=== PATIENT | male | born 1940 | race Caucasian/White ===

== ENCOUNTER → 2019-03-15 | Outpatient (CLI) | payer OTHER ==
--- NOTE | 2019-03-15 16:04 | CARDNUC ---
[place] [address] CARDIAC NUCLEAR IMAGING REPORT Name: PK DANIELLE Room: [facility]#: [id number] Admission: Attend Phys: Connie Villalta Discharge: Date of : 44 Date of Service: 03/15/19 1603 Report #: [id number] THIS REPORT FOR: //name// APPROVED REPORT Study performed: 03/15/2019 11:37:10 Exam: Nuclear Stress Test Indication: Dyspnea Patient Location: Out-Patient Stress Tech: Mayuri Simeon Stress Nurse: Radha Beltran R.N. Ht: 5 ft 3 in Wt: 185 lbs BSA: 1.87 m2 BMI: 32.76 Medical History Medical History: Diabetes, HTN, Hyperlipidemia, Obesity , SOB, Stroke/TIA, Chews Tobacco. Medications: Bystolic, Lisinopril, Metformin, Doxazosin. Allergies: No known drug allergies Cardiac Risk Factors: Age, DM, FHX of CAD, HTN, Hyperlipidemia, SOB. Previous Cardiac Procedures: None Pretest Chest Pain Characteristics: No chest pain Exercise History: Indeterminate Physical Disabilities: SOA, Obesity, unsteady gait. Meds Held (24 hrs): None Stress Test Details Stress Test: Pharmacologic stress testing performed using 0.4 mg of regadenoson per 5 mL given IV over 10 seconds. Reason for pharmacologic stress test: Unsteady gait, SOA.. HR Resting HR: 63 bpm Max Heart Rate (APMHR): 144 bpm Max HR Achieved: 90 bpm Target HR (85% APMHR): 122 bpm % of APMHR: 62 Recovery HR: 79 bpm HR response to stress: Normal HR response to stress BP Resting BP: 199/91 mmHg Max BP: 161/74 [place] [address] CARDIAC NUCLEAR IMAGING REPORT Name: PK DANIELLE Room: [facility]#: [id number] Admission: Attend Phys: Connie Villalta Discharge: Date of : 44 Date of Service: 03/15/19 1603 Report #: [id number] BP response to stress: Normal blood pressure response to stress. ECG Resting ECG: nsr Stress ECG: nsr ST Change: none Arrhythmia: none Recovery ECG: nsr Recovery ST Change: none Clinical Reason for Termination: Completed protocol Stress Symptoms: Brief SOA. Exercise duration: 00 min 00 sec Exercise capacity: 1.00 METs Nurse Comments 78 year old male presented with recent HX of increased SOA on exertion and HTN. Patient tolerated sitting Lexiscan well. Recovery unremarkable with PO caffeine, effective. Patient continued with HTN as when patient arrived. Instructed patient to take B/P medication back at home and talk to PCP about continued HTN. Patient escorted by staff to Nuclear Medicine for images. Patient was stable with no complaints at that time. NM EXAM: Myocardial Perfusion REST/STRESS Resting Data Rest SPECT myocardial perfusion imaging was performed in supine position 30 minutes following the intravenous injection of 11.0 mCi of Tc-99m Sestamibi. Time of rest injection: 10:05 The images were gated to evaluate regional wall motion and calculate left ventricular ejection fraction. Administration Route: IV Administration Site: Right AC Pharmacologic Stress Pharmacologic stress test was performed by injecting Regadenoson 0.4 mg IV push followed by the intravenous injection of 32.5 mCi of Tc-99m Sestamibi. Time of stress injection: 11:45 Administration Route: IV Administration Site: Right AC Heart Rate at time of stress injection: 89 bpm. Gated Stress SPECT was performed 45 [place] [address] CARDIAC NUCLEAR IMAGING REPORT Name: PK DANIELLE Room: [facility]#: [id number] Admission: Attend Phys: Connie Villalta Discharge: Date of : 44 Date of Service: 03/15/19 1603 Report #: [id number] injection. The images were gated to evaluate regional wall motion and calculate left ventricular ejection fraction. Study Quality Study: Good Artifact: No artifact Study Data At rest, the left ventricular ejection fraction was 63%.. Post stress, the left ventricular ejection was 79%.. SSS: 0 SRS: 0 SDS: 0 Perfusion Review of rest data reveals normal perfusion, without perfusion defects.Imaging obtained following vasodilator stress demonstrate a similar, uniform uptake of tracer without defects. LVEDV is normal.No segental wall motion abnormality seen. Nuclear Conclusion ECG Findings: negative for ischemia Clinical Findings: negative for ischemia Nuclear Findings: negative for ischemia Exercise Capacity: not assessed Left Ventricular Function: normal Risk Study: low Negative nuclear perfuson stress test for ischemia or infarct <ELECTRONICALLY SIGNED> By: Vinny Guadalupe MD, FACC 03/15/19 1603 1603 1603 Vinny Guadalupe MD, FACC /INF
== END ==
LOC: M.NUC 03-06 11:42 → M.CRD 09:00 → M.NUC 10:00
DX: R06.09 Other forms of dyspnea (principal); E11.9 Type 2 diabetes mellitus without complications; I10 Essential (primary) hypertension; E78.5 Hyperlipidemia, unspecified; E66.9 Obesity, unspecified; F17.200 Nicotine dependence, unspecified, uncomplicated; Z79.84 Long term (current) use of oral hypoglycemic drugs; Z79.899 Other long term (current) drug therapy

== ENCOUNTER 2019-10-25 16:38 | Emergency (ER) | payer OTHER ==
[~2019-10-25] VITALS: Ht 160 cm; Wt 79.4 kg
[2019-10-25] MEDS ORDERED: METFORMIN HCL500 M3 PO (17:07)
[2019-10-25] MEDS ORDERED: BYSTOLIC10 MG PO (17:07)
[2019-10-25] MEDS ORDERED: LISINOPRIL-HCT1 EAC2 PO (17:07)
[2019-10-25] MEDS ORDERED: OMEPRAZOLE 20 M20 M1 PO (17:08)
[2019-10-25] MEDS ORDERED: DOXAZOSIN MESYLA4 MG PO (17:09)
[2019-10-25 17:41] LABS: CALCIUM 8.9 mg/dL (8.5-10.1); CREATININE 1.1 mg/dL (0.6-1.3); POTASSIUM 3.9 mmol/L (3.5-5.1)
[2019-10-25 17:45] LABS: ALBUMIN 3.4 g/dL (3.4-5.0); TOTAL BILIRUBIN 0.2 mg/dL (<0.1-1.0); TOTAL PROTEIN 7.1 g/dL (6.4-8.2)
[2019-10-25 18:14] LABS: URINE BILIRUBIN NEGATIVE (Negative); URINE BLOOD NEGATIVE (Negative); URINE CLARITY CLEAR; URINE COLOR YELLOW; URINE GLUCOSE-RANDOM NEGATIVE (Negative); URINE KETONES NEGATIVE (Negative); URINE LEUKOCYTES-REFLEX NEGATIVE (Negative); URINE NITRITE-REFLEX NEGATIVE (Negative); URINE PROTEIN NEGATIVE (Negative); URINE UROBILINOGEN 0.2 E.U./dl (0.2-1.0)
[2019-10-25 18:17] LABS: ABSOLUTE BASOPHILS 0.1 thou/uL (0.0-0.2); ABSOLUTE EOSINOPHILS 0.1 thou/uL (0.0-0.7); ABSOLUTE LYMPHOCYTES 1.6 thou/uL (0.8-5.3); ABSOLUTE MONOCYTES 0.5 thou/uL (0.0-1.2); ABSOLUTE NEUTROPHILS 5.9 thou/uL (1.6-8.1); BASOPHILS 0.6 %; EOSINOPHILS 1.1 %; HEMATOCRIT 34.3 % (42.0-52.0); HEMOGLOBIN 11.9 gm/dL (14.0-18.0); LYMPHOCYTES 19.3 %; MCH 29.2 pg (26.0-34.0); MCHC 34.7 g/dL (28.0-37.0); MCV 84.1 fL (80.0-100.0); MONOCYTES 6.7 %; NUCLEATED RBCS 0 /100WBC; PLATELET COUNT* 245 thou/uL (150-400); POLYS 72.3 %; RBC 4.07 mil/uL (4.50-6.00); RDW-CV 13.9 % (10.5-14.5); WBC 8.2 thou/uL (4.0-11.0)
[2019-10-25] MEDS ORDERED: CATAPRES0.1 MG PO (19:30)
[2019-10-25 19:55] VITALS: BP 150/77
--- NOTE | 2019-10-30 13:55 | EKG ---
[place] [address] ELECTROCARDIOGRAM REPORT Name: GILBERT DANIELLESAVANNA Dulce Room: [facility]#: [id number] Admission: 10/25/19 Attend Phys: Discharge: 10/25/19 Date of : 44 Date of Service: 10/25/19 173 Report #: [id number] THIS REPORT FOR: cc: Luke Saldivar Adam J DO Blick, David R. 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: : 1940 Requested By: Rachel Dukes Order Number: [id number] : Felipe Jones Measurements Intervals [place] Rate: 67 P: 10 KS: 220 QRS: 40 QRSD: 87 T: 75 QT: 392 QTc: 414 Interpretive Statements Sinus rhythm Prolonged KS interval Left atrial enlargement Abnormal inferior Q waves Borderline repolarization abnormality Minimal ST elevation, suspect early repolarization No previous ECG available for comparison Electronically Signed On 10-26-2019 13:29:34 CATH LABORATORY TECHNICIAN by Felipe Jones [email or web address] <ELECTRONICALLY SIGNED> By: Felipe Jones MD, FACC 10/26/19 1329 1732 1732 Felipe Jones MD, [facility] /EPI
== END 2019-10-25 19:56 | disposition home or self-care (01) ==
LOC: M.ERS 16:38
PROVIDERS: Emergency Medicine Emergency Medical Services; Nurse Practitioner Family
DX: I10 Essential (primary) hypertension (principal); E11.9 Type 2 diabetes mellitus without complications